=== PATIENT | female | born 1960 | race American Indian/Alaskan Native ===

== ENCOUNTER 2017-02-10 11:18 | Outpatient (CLI) | payer OTHER ==
--- NOTE | 2017-02-10 15:47 | Mammography Report ---
BILATERAL DIGITAL SCREENING MAMMOGRAM with CAD: 02/10/17 11:18:00 CLINICAL: Routine screening. COMPARISON:12/23/15 FINDINGS: The breasts are almost entirely fatty. No mass, architectural distortion or suspicious calcifications. IMPRESSION: No mammographic evidence of malignancy. BI-RADS CATEGORY: 2 -- Benign RECOMMENDATION: Routine mammographic screening in one year. COMMENT: Patient follow-up letters are generated by our [employer] application.
== END 2017-02-10 11:19 | disposition home or self-care (01) ==
LOC: SPVWC 11:18
PROVIDERS: ATTEND Family Medicine
DX: Z12.31 Encounter for screening mammogram for malignant neoplasm of breast (principal)
CPT/HCPCS: 77067; G0202

== ENCOUNTER 2017-09-06 08:54 | Outpatient (CLI) | payer OTHER ==
--- NOTE | 2017-09-06 21:04 | XRay Report ---
FINAL REPORT EXAM: XR KNEE 3V LT HISTORY: LEFT KNEE PAIN TECHNIQUE: Three views left knee Comparison: None FINDINGS: No history of trauma was provided. Normal bony mineralization. No fracture or dislocation. No suprapatellar bursal effusion. Lateral film is mildly oblique. IMPRESSION: No acute abnormality. No trauma history was provided.
== END 2017-09-06 08:55 | disposition home or self-care (01) ==
LOC: XRAY 08:54
PROVIDERS: ATTEND Family Medicine
DX: M25.562 Pain in left knee (principal)

== ENCOUNTER 2017-09-15 08:59 | Outpatient (CLI) | payer OTHER | END 2017-09-15 09:00 | disposition home or self-care (01) | LOC: VAS 08:59 | PROVIDERS: ATTEND Family Medicine | DX: M79.604 Pain in right leg (principal); M25.562 Pain in left knee | CPT/HCPCS: 93970 ==

== ENCOUNTER 2018-02-16 09:36 | Outpatient (CLI) | payer OTHER ==
--- NOTE | 2018-02-16 16:15 | Mammography Report ---
BILATERAL DIGITAL SCREENING MAMMOGRAM with CAD: 02/16/18 09:36:00 CLINICAL: Routine screening. COMPARISON:02/10/17 FINDINGS: The breasts are almost entirely fatty. No new mass, architectural distortion or suspicious calcifications. IMPRESSION: No mammographic evidence of malignancy. BI-RADS CATEGORY: 2 -- Benign RECOMMENDATION: Routine mammographic screening in one year. COMMENT: Patient follow-up letters are generated by our [employer] application.
== END 2018-02-16 09:37 | disposition home or self-care (01) ==
LOC: SPVWC 09:36
PROVIDERS: ATTEND Family Medicine
DX: Z12.31 Encounter for screening mammogram for malignant neoplasm of breast (principal)
CPT/HCPCS: 77067

== ENCOUNTER 2018-08-20 09:13 | Outpatient (CLI) | payer OTHER ==
--- NOTE | 2018-08-20 11:21 | Ultrasound Report ---
RENAL ULTRASOUND: 08/20/18 09:30:00 CLINICAL: Abnormal lab values. FINDINGS: High resolution ultrasound demonstrated normal nondilated renal collecting systems and ureters. Normal echogenicity of the kidneys. No renal mass, cyst or calculus. The right kidney measures 8.8 x 4.5 x 4.8-cm. The renal parenchyma measures 1.4-cm in thickness. The left kidney measures 9.5 x 5.9 x 5.1-cm. The renal parenchyma measures 1.5-cm in thickness. Incidentally, the spleen is enlarged and measures approximately 13 cm in length. Diffuse increased echogenicity of the liver and sludge in the gallbladder. A normal moderate distended urinary bladder. IMPRESSION: 1. No hydronephrosis. 2. Borderline small but otherwise normal kidneys. 3. Increased liver echogenicity suggests hepatic steatosis. 4. Mild splenomegaly. The 5. Gallbladder sludge but no stones identified.
== END 2018-08-20 09:14 | disposition home or self-care (01) ==
LOC: SPVWC 09:13
PROVIDERS: ATTEND Family Medicine
DX: R16.1 Splenomegaly, not elsewhere classified (principal)
CPT/HCPCS: 76770

== ENCOUNTER 2018-08-21 08:28 | Outpatient (CLI) | payer OTHER ==
--- NOTE | 2018-08-21 09:14 | Mammography Report ---
RIGHT DIGITAL DIAGNOSTIC MAMMOGRAM with CAD: 08/21/18 08:28:00 CLINICAL: Recent right inner breast pain which has gotten better. COMPARISON:02/16/18 FINDINGS: The breast is mostly fatty. Benign intraparenchymal lymph nodes.No mass, architectural distortion or suspicious calcifications. IMPRESSION: No mammographic evidence of malignancy. BI-RADS CATEGORY: 1 - - Negative RECOMMENDATION: Routine mammographic screening in February 2019. ACR BI-RADS MAMMOGRAPHIC CODES: 0 = Needs additional imaging evaluation; 1 = Negative; 2 = Benign; 3 = Probably benign; 4 = Suspicious; 5 = Malignant; 6 = Known biopsy-proven malignancy COMMENT: 1. Dense breast tissue, i.e., adenosis, fibrocystic changes, etc., may obscure an underlying neoplasm. 2. Approximately 10% of cancers are not detected with mammography. 3. A negative mammography report should not delay biopsy if a clinically suspicious mass is present. COMMENT: Patient follow-up letters are generated by our [employer] application.
== END 2018-08-21 08:29 | disposition home or self-care (01) ==
LOC: MAMMO 08:28
PROVIDERS: ATTEND Family Medicine
DX: N64.4 Mastodynia (principal)

== ENCOUNTER 2019-04-24 09:54 | Outpatient (CLI) | payer OTHER ==
--- NOTE | 2019-04-24 17:52 | Mammography Report ---
DIGITAL SCREENING MAMMOGRAM WITH CAD, 04/24/2019 INDICATION: Routine screening mammography. Positive family history with her aunt diagnosed with breas t cancer. TECHNIQUE: Digital bilateral 2D mammography was obtained in the craniocaudal and mediolateral obliq ue projections. This examination was interpreted with the benefit of Computer-Aided Detection analysi s. COMPARISON: 02/16/2018 and 02/10/2017 FINDINGS: Breast Density: There are scattered areas of fibroglandular density. Benign-appearing scattered nodul arity again noted. There is no evidence of dominant mass, suspicious calcifications or architectural distortion in either breast. IMPRESSION: Follow up recommendation: Routine yearly BI-RADS Category 2: Benign. A "normal" or negative report should not discourage follow up or biopsy of a clinically significant f inding. A written summary of these findings will be mailed to the patient. The patient will be entered into a mammography reporting system which will generate a reminder letter for the patient's next appointmen t at the appropriate interval. The [employer] recommends yearly mammograms starting at age 40 and continuing as l darling as a woman is in good health. Breast MRI is recommended for women with an approximate 20-25% or greater lifetime risk of breast cancer, including women with a strong family history of breast or ova abhishek cancer or who have been treated for Hodgkin's disease. Signer Name: Iris Birch MD Signed: 04/24/2019 5:48 PM Workstation Name: [email or web address]
== END 2019-04-24 09:55 | disposition home or self-care (01) ==
LOC: SPVWC 09:54
PROVIDERS: ATTEND Family Medicine
DX: Z12.31 Encounter for screening mammogram for malignant neoplasm of breast (principal)
CPT/HCPCS: 77067

== ENCOUNTER 2020-09-22 13:10 | Outpatient (CLI) | payer OTHER ==
--- NOTE | 2020-09-22 14:30 | Mammography Report ---
BILATERAL DIGITAL SCREENING MAMMOGRAM WITH CAD HISTORY: Screening mammogram. TECHNIQUE: Routine digital mammographic imaging performed. This examination was interpreted with micaela jeffers benefit of Computer-aided Detection analysis. COMPARISON: 04/24/2019, 02/16/2018, 02/10/2017. FINDINGS: Breast Density: scattered fibroglandular appearance of the breast tissue. Digital CC and MLO views demonstrate no mammographic evidence of malignancy. A few circumscribed rou nd and oval lesions within both breasts are stable. Long-term stability would support a benign etiolo gy. IMPRESSION: No mammographic evidence of malignancy. If the clinical examination remains stable, recommend bilate ral mammogram in approximately one year. BIRADS 2: Benign Finding(s). FURTHER INFORMATION: According to the [employer], yearly mammograms are recommend ed starting at age 40 and continuing as long as a woman is in good health. Clinical Breast Exams shou ld be part of a periodic health exam-about every 3 years for women in their 20s and 30s and every yea r for women 40 and over. Breast self exam is an option for women starting in their 20s. Any breast ch meliza noted on a breast self exam should be reported promptly to the patient's healthcare provider. Br east MRI is recommended for women with an approximately 20-25% or greater lifetime risk of breast can cer, including women with a strong family history of breast or ovarian cancer and women who have been treated for Hodgkin's disease. A negative Mammography report should not discourage follow up or biopsy of a clinically significant f inding and/or abnormality. Dense breast tissue may obscure small neoplasms. The patient will be entered into a reminder system with a target due date for the next screening mamm ogram. Signer Name: Alpesh Hazel MD Signed: 09/22/2020 2:25 PM Workstation Name: [id number]
== END 2020-09-22 13:11 | disposition home or self-care (01) ==
LOC: SPVWC 13:10
PROVIDERS: ATTEND Family Medicine
DX: Z12.31 Encounter for screening mammogram for malignant neoplasm of breast (principal)
CPT/HCPCS: 77067

== ENCOUNTER 2021-11-05 08:07 | Outpatient (CLI) | payer OTHER ==
--- NOTE | 2021-11-05 09:11 | Mammography Report ---
BILATERAL DIGITAL DIAGNOSTIC MAMMOGRAM WITH CAD CONVENTIONAL, 11/05/2021 RIGHT LIMITED BREAST ULTRASOUND CLINICAL INFORMATION / INDICATION: Grandreina fell on her approximately one week ago with initial pain in the right upper inner quadrant. Patient states that she no longer has breast pain. N64.4 TECHNIQUE: Digital bilateral mammographic imaging was performed. Limited ultrasound was performed. Th is examination was interpreted with the benefit of Computer-Aided Detection (CAD) analysis. COMPARISON: 02/16/2018 through 09/22/2020. FINDINGS: Breast Density: There are scattered areas of fibroglandular density. MAMMOGRAPHIC FINDINGS: No dominant mass, suspicious calcifications, or architectural distortion in ei ther breast. Small bilateral nodules/intramammary lymph nodes are stable. No new abnormality is seen. ULTRASOUND FINDINGS: Targeted ultrasound evaluation was performed of the area of interest. There is no evidence of a cystic or solid mass. No posterior shadowing, distortion or other abnormality is se en. IMPRESSION: No mammographic or sonographic evidence of malignancy. Follow up recommendation: Routine yearly screening mammogram. BI-RADS Category 2: BENIGN. A "normal" or negative report should not discourage follow up or biopsy of a clinically significant f inding. A written summary of these findings will be mailed to the patient. The patient will be entered into a mammography reporting system which will generate a reminder letter for the patient's next appointmen t at the appropriate interval. According to the [employer], yearly mammograms are recommended starting at age 40 and continuing as long as a woman is in good health. Breast MRI is recommended for women with an emmett roximately 20-25% or greater lifetime risk of breast cancer, including women with a strong family his tory of breast or ovarian cancer and women who have been treated for Hodgkin's disease. Signer Name: Zach Duvall MD Signed: 11/05/2021 9:07 AM Workstation Name: [id number]
== END 2021-11-05 08:08 | disposition home or self-care (01) ==
LOC: MAMMO 08:07
PROVIDERS: ATTEND Family Medicine
DX: N63.20 Unspecified lump in the left breast, unspecified quadrant (principal); N63.10 Unspecified lump in the right breast, unspecified quadrant; N64.4 Mastodynia; R92.2 Inconclusive mammogram
CPT/HCPCS: 77066